=== PATIENT | male | born 1960 | race Caucasian/White ===

== ENCOUNTER 2020-01-23 10:36 | Emergency (ER) | payer OTHER ==
[~2020-01-23] VITALS: Ht 175.3 cm; Wt 65.0 kg
[2020-01-23 10:36] VITALS: BP 126/70
--- NOTE | 2020-01-23 11:01 | PHYS DOC ---
General Adult EDM: Chief Complaint: KNEE INJURY HPI: HPI: Patient is a 59 year old male who presents with yesterday was bent over on the deck feeling some yard work when he went to stand back up and twisted his right knee wrong. He states that he now has a sharp and aching pain in the lateral knee. He still has full range of motion of the knee but states when he has to put any pressure on it it hurts at a 10 out of 10. Denies radiation. Denies any tenderness or numbness and tingling. There is no swelling or deformity of the knee. Patient states in the past he has had a meniscus tear that was repaired in that knee. He states he was trying to call his orthopedic doctor but the phone line keeps saying it is busy. Review of Systems: Review of Systems: Constitutional: Denies fever or chills. Ambulatory but limping on right lower extremity. [] Eyes: Denies change in visual acuity. [] HENT: Denies nasal congestion or sore throat. [] Respiratory: Denies cough or shortness of breath. [] Cardiovascular: Denies chest pain or edema. [] GI: Denies abdominal pain, nausea, vomiting, bloody stools or diarrhea. [] : Denies dysuria. [] Musculoskeletal: Denies back pain. Right lateral knee joint pain. [] Integument: Denies rash. [] Neurologic: Denies headache, focal weakness or sensory changes. [] Endocrine: Denies polyuria or polydipsia. [] Lymphatic: Denies swollen glands. [] Psychiatric: Denies depression or anxiety. [] Heart Score: Risk Factors: Risk Factors: DM, Current or recent (<one month) smoker, HTN, HLP, family history of CAD, obesity. Risk Scores: Score 0 - 3: 2.5% MACE over next 6 weeks - Discharge Home Score 4 - 6: 20.3% MACE over next 6 weeks - Admit for Clinical Observation Score 7 - 10: 72.7% MACE over next 6 weeks - Early Invasive Strategies Allergies: Allergies: Allergies Coded Allergies Type Severity Reaction Last Updated Verified No Known Drug Allergies 01/23/20 No Physical Exam: PE: Constitutional: Well developed, well nourished, no acute distress, non-toxic appearance. [] HENT: Normocephalic, atraumatic, bilateral external ears normal, oropharynx moist, no oral exudates, nose normal. [] Eyes: PERRLA, EOMI, conjunctiva normal, no discharge. [] Neck: Normal range of motion, no tenderness, supple, no stridor. [] Cardiovascular:Heart rate regular rhythm, no murmur [] Lungs & Thorax: Bilateral breath sounds clear to auscultation [] Abdomen: Bowel sounds normal, soft, no tenderness, no masses, no pulsatile masses. [] Skin: Warm, dry, no erythema, no rash. [] Back: No tenderness, no CVA tenderness. [] Extremities: No tenderness, no cyanosis, no clubbing, ROM intact, no edema. Ambulatory but limping on right lower extremity. [] Neurologic: Alert and oriented X 3, normal motor function, normal sensory function, no focal deficits noted. [] Psychologic: Affect normal, judgement normal, mood normal. EKG: EKG: [] Radiology/Procedures: Radiology/Procedures: [] Impression: [facility] [address] [place] [address] IMAGING REPORT Signed PATIENT: PRISCILA CHAUHAN ACCOUNT: [id number] : 1960 LOCATION: ER AGE: 59 SEX: M EXAM STATUS: REG ER ORD. PHYSICIAN: IVON BERGER APRN REASON: pain, injury PROCEDURE: KNEE RIGHT 4V KNEE RIGHT 4V History: Reason: pain, injury / Spl. Instructions: / History: Technique: 4 views right knee. Comparison: None. Findings: Normal alignment. No fracture. Soft tissues unremarkable. No significant knee joint effusion although degraded evaluation lateral view due to positioning. Impression: 1. No acute osseous abnormality. Electronically signed by: Jesus Calderon DO (01/23/2020 12:11 PM) [id number] DICTATED and SIGNED BY: JESUS CALDERON DO DATE: 01/23/20 1211 Course & Med Decision Making: Course & Med Decision Making Pertinent Labs and Imaging studies reviewed. (See chart for details) Denies taking anything for the pain. Alert and oriented. Ambulatory but limping on the right leg due to knee pain. Skin pink warm and dry. Pedal pulse strong present. No swelling in that extremity. No joint swelling, no redness, no tenderness to the knee. No joint laxity. Can wiggle all of his toes and move at the ankle with full range of motion. Cap refill less than 3 seconds. No bruising around the knee. No tenderness to the knee. I have ordered a knee immobilizer for the patient. I told him that I will do an x-ray but the x-ray cannot show any ligament injuries and he will be placed in a knee immobilizer and we will refer him to orthopedics. [] Dragon Disclaimer: Dragon Disclaimer: This electronic medical record was generated, in whole or in part, using a voice recognition dictation system. Departure Departure Impression: Primary Impression: Knee pain, right Qualified Codes: M25.561 - Pain in right knee Disposition: HOME, SELF-CARE Condition: STABLE Referrals: LISETTE MELCHOR (PCP) LEONARD CRUZ MD Patient Instructions: Knee Pain Additional Instructions: Follow-up with orthopedics as soon as possible. Take medications as prescribed and with food. Do not drive or drink alcohol with these medications. Scripts Hydrocodone/Apap 5-325 (NORCO 5-325 TABLET) 1 Each Tablet 1 TAB PO PRN Q6HRS PRN for PAIN, #10 TAB 0 Refills Prov: IVON BERGER APRN 01/23/20 Justicifation of Admission Dx: Justifications for Admission: Justification of Admission Dx: N/A IVON BERGER APRN Jan 23, 2020 11:01
--- NOTE | 2020-01-23 12:14 | RAD ---
KNEE RIGHT 4V History: Reason: pain, injury / Spl. Instructions: / History: Technique: 4 views right knee. Comparison: None. Findings: Normal alignment. No fracture. Soft tissues unremarkable. No significant knee joint effusion although degraded evaluation lateral view due to positioning. Impression: 1. No acute osseous abnormality. Electronically signed by: Jesus Calderon DO (01/23/2020 12:11 PM) [id number]
[2020-01-23] MEDS ORDERED: HYDR-3164 PO (12:18)
== END 2020-01-23 12:28 | disposition home or self-care (01) ==
LOC: ER 10:36
DX: M25.561 Pain in right knee (principal)
CPT/HCPCS: 29505; 73564; 99283